=== PATIENT | female | born 1955 | race African-American/Black ===

== ENCOUNTER 2024-04-23 01:25 | Inpatient (IN) | payer MEDICARE, MEDICAID ==
[~2024-04-23] VITALS: Ht 180.3 cm; Wt 56.4 kg
[2024-04-23] MEDS: METHYLPREDNISOLONE SOD SUCC 125MG/2ML (ACT-O-VIAL) IV STA (02:00)
[2024-04-23] MEDS: IPRATROPIUM BROMIDE (0.02%) 0.5MG/2.5ML NEB ONE (03:35)
[2024-04-23] MEDS: ALBUTEROL (0.083%) 2.5MG/3ML NEB ONE (03:35)
[2024-04-23] MEDS: ALBUTEROL (0.083%) 2.5MG/3ML NEB HHN STA (03:44)
[2024-04-23] MEDS: IPRATROPIUM BROMIDE (0.02%) 0.5MG/2.5ML NEB HHN STA (03:44)
[2024-04-23 03:49] VITALS: PULSE 76; RESP 15; O2SAT 96
[2024-04-23 04:09] LABS: EOSINOPHILS % 4.7 % (0.0-5.0); HEMATOCRIT. 27.9 % (36.0-48.0); HEMOGLOBIN. 8.8 g/dL (12.0-16.0); LYMPHOCYTES % 15.3 % (20.0-50.0); MEAN CORPUSCULAR HEMOGLOBIN 25.8 pg (28.0-32.0); MEAN CORPUSCULAR HGB CONC 31.7 g/dL (31.0-37.0); MEAN CORPUSCULAR VOLUME 81.5 fL (81.0-99.0); MEAN PLATELET VOLUME 9.2 fl (7.4-10.4); MONOCYTES % 5.3 % (2.0-8.0); NEUTROPHILS % 73.7 % (40.0-76.0); PLATELET 434 x1000/uL (130-400); RED BLOOD CELL COUNT 3.42 mill/uL (4.2-5.4); RED CELL DISTRIBUTION WIDTH 15.5 % (11.6-14.6); WHITE BLOOD COUNT 10.9 x1000/uL (4.5-11.0)
[2024-04-23 04:15] LABS: CHLORIDE 112 mEq/L (98-107); POTASSIUM 4.4 mEq/L (3.5-5.1); SODIUM 138 mEq/L (136-145)
[2024-04-23 04:16] LABS: CALCIUM 12.6 mg/dL (8.7-10.4); CARBON DIOXIDE 19 mEq/L (21-32)
[2024-04-23 04:21] LABS: CREATININE 0.9 mg/dL (0.6-1.0); GLUCOSE 107 mg/dL (70-105); UREA NITROGEN BLOOD 24 mg/dL (9-23)
[2024-04-23 04:24] LABS: TROPONIN I HIGH SENSITIVITY < 4 ng/L (3.0-34)
[2024-04-23 04:30] LABS: BG BASE EXCESS -6.5 mmol/L (-2.0-3.0); BG CARBOXYHEMOGLOBIN 0.3 % (0.5-1.5); BG DEOXYHEMOGLOBIN 2.5 % (0.0-5.0); BG HCO3 ACT 17.6 mmol/L (21.0-28.0); BG METHEMOGLOBIN 0.3 % (0.5-1.5); BG OXYGEN SATURATION 97.5 % (94.0-98.0); BG OXYHEMOGLOBIN 96.9 % (94.0-98.0); BG PCO2 30.3 mmHg (32.0-45.0); BG PH 7.382 (7.350-7.450); BG PO2 97.4 mmHg (83.0-108.0); BG TOTAL HEMOGLOBIN 10.3 g/dL (12.0-16.0); BG VENT MODE ROOM AIR
[2024-04-23] MEDS ORDERED: MAGNESIUM/ALUMINUM HYDROXIDE/SIMETHICONE 30ML UDC PO PRN (05:15)
[2024-04-23] MEDS ORDERED: ONDANSETRON HCL 4MG/2ML INJ IV PRN (05:15)
[2024-04-23] MEDS ORDERED: HYDRALAZINE 20MG/ML VIAL IV PRN (05:15)
[2024-04-23] MEDS ORDERED: IPRATROPIUM/ALBUTEROL 0.5-3(2.5)MG/3ML NEB HHN PRN (05:15)
[2024-04-23] MEDS ORDERED: ACETAMINOPHEN 325MG TABLET PO PRN (05:15)
[2024-04-23] MEDS: SODIUM CHLORIDE 0.9% 1,000 ML IV SCH (05:29)
[2024-04-23] MEDS: PANTOPRAZOLE SODIUM 40 MG/VIAL IV SCH (08:13)
[2024-04-23] MEDS: ENOXAPARIN 40MG/0.4ML SYR SUBCUT SCH (08:14)
[2024-04-23 08:51] LABS: INR 1.1; PARTIAL THROMBOPLASTIN TIME 22.3 sec (23.4-31.0); PROTHROMBIN TIME 12.4 sec (9.6-11.0)
[2024-04-23 08:52] LABS: IRON 24 ug/dL (50-170)
[2024-04-23 08:53] LABS: PHOSPHORUS 2.5 mg/dL (2.5-4.9)
[2024-04-23 08:54] LABS: CREATINE KINASE MB FRACTION < 0.5 ng/mL (0.5-3.6)
[2024-04-23 08:55] LABS: FERRITIN 141 ng/mL (10-291); LACTATE DEHYDROGENASE 113 IU/L (120-246)
[2024-04-23 08:56] LABS: TOTAL IRON BINDING CAPACITY 205 ug/dl (250-425); VITAMIN B12 SERUM 966 pg/mL (211-911)
[2024-04-23 09:39] LABS: TROPONIN I HIGH SENSITIVITY < 4 ng/L (3.0-34)
[2024-04-23 09:40] LABS: CREATINE KINASE < 15 IU/L (34-145)
[2024-04-23] MEDS: GUAIFENESIN/DM 600MG/30MG ER TAB 12HR PO SCH (13:51)
[2024-04-23] MEDS: IOHEXOL-350 100 ML BOTTLE ONE (14:41)
[2024-04-23 21:09] LABS: CREATINE KINASE MB FRACTION < 0.5 ng/mL (0.5-3.6)
[2024-04-23 21:11] LABS: CREATINE KINASE < 15 IU/L (34-145)
[2024-04-24] VITALS (7 sets, daily range): BP systolic 107–153; BP diastolic 56–86; PULSE 63–98; RESP 18–19; TEMP 36.4–38; O2SAT 96–100
[2024-04-24] MEDS: ENOXAPARIN 30MG/0.3ML SYR SUBCUT SCH (09:03)
[2024-04-24] MEDS: ACETAMINOPHEN 325MG TABLET PO PRN (09:10)
[2024-04-24 10:46] LABS: EOSINOPHILS % 2.1 % (0.0-5.0); HEMATOCRIT. 30.4 % (36.0-48.0); HEMOGLOBIN. 9.6 g/dL (12.0-16.0); MEAN CORPUSCULAR HEMOGLOBIN 25.7 pg (28.0-32.0); MEAN CORPUSCULAR HGB CONC 31.7 g/dL (31.0-37.0); MEAN CORPUSCULAR VOLUME 81.2 fL (81.0-99.0); MEAN PLATELET VOLUME 10.1 fl (7.4-10.4); MONOCYTES % 3.6 % (2.0-8.0); NEUTROPHILS % 73.3 % (40.0-76.0); PLATELET 459 x1000/uL (130-400); RED BLOOD CELL COUNT 3.74 mill/uL (4.2-5.4); WHITE BLOOD COUNT 10.3 x1000/uL (4.5-11.0)
[2024-04-24 11:44] LABS: CALCIUM 12.8 mg/dL (8.7-10.4); CARBON DIOXIDE 17 mEq/L (21-32); CHLORIDE 112 mEq/L (98-107); POTASSIUM 4.5 mEq/L (3.5-5.1); SODIUM 139 mEq/L (136-145)
[2024-04-24 11:46] LABS: THYROID STIMULATING HORMONE 1.18 uIU/mL (0.55-4.78)
[2024-04-24 11:47] LABS: ALBUMIN 3.4 g/dL (3.2-4.8)
[2024-04-24 11:50] LABS: CREATININE 0.9 mg/dL (0.6-1.0); GLUCOSE 88 mg/dL (70-105); UREA NITROGEN BLOOD 29 mg/dL (9-23)
[2024-04-25] VITALS: BP 118/70; PULSE 77; RESP 18; TEMP 36.7; O2SAT 97
[2024-04-25 04:00] VITALS: BP 109/68; PULSE 83; RESP 18; TEMP 36.6; O2SAT 96
[2024-04-25 06:30] LABS: BASOPHILS % 0.7 % (0.0-2.0); DIFFERENTIAL COMMENT 0; EOSINOPHILS % 2.4 % (0.0-5.0); HEMATOCRIT. 32.8 % (36.0-48.0); HEMOGLOBIN. 10.2 g/dL (12.0-16.0); LYMPHOCYTES % 17.6 % (20.0-50.0); MEAN CORPUSCULAR HEMOGLOBIN 24.7 pg (28.0-32.0); MEAN CORPUSCULAR HGB CONC 31.1 g/dL (31.0-37.0); MEAN CORPUSCULAR VOLUME 79.5 fL (81.0-99.0); MEAN PLATELET VOLUME 9.6 fl (7.4-10.4); MONOCYTES % 3.8 % (2.0-8.0); NEUTROPHILS % 75.5 % (40.0-76.0); PLATELET 490 x1000/uL (130-400); RED BLOOD CELL COUNT 4.12 mill/uL (4.2-5.4); RED CELL DISTRIBUTION WIDTH 16.1 % (11.6-14.6); WHITE BLOOD COUNT 9.1 x1000/uL (4.5-11.0)
[2024-04-25 07:02] LABS: CHLORIDE 113 mEq/L (98-107); POTASSIUM 4.2 mEq/L (3.5-5.1); SODIUM 139 mEq/L (136-145)
[2024-04-25 07:03] LABS: CARBON DIOXIDE 17 mEq/L (21-32)
[2024-04-25 07:04] LABS: CALCIUM 12.8 mg/dL (8.7-10.4)
[2024-04-25 07:08] LABS: CREATININE 0.9 mg/dL (0.6-1.0); GLUCOSE 81 mg/dL (70-105); UREA NITROGEN BLOOD 24 mg/dL (9-23)
[2024-04-25 08:00] VITALS: BP 117/60; PULSE 84; RESP 18; TEMP 36.4; O2SAT 100
[2024-04-25] MEDS ORDERED: BENZONATATE 100MG CAPSULE PO PRN (08:15)
[2024-04-25] MEDS: FERROUS SULFATE 325MG TABLET PO SCH (08:40)
[2024-04-25 12:00] VITALS: BP 127/17; PULSE 83; RESP 18; TEMP 36.5; O2SAT 100
[2024-04-25 16:00] VITALS: BP 131/67; PULSE 85; RESP 20; TEMP 37.4; O2SAT 100
[2024-04-25 20:00] VITALS: BP 148/72; PULSE 87; RESP 20; TEMP 36.9; O2SAT 98
[2024-04-26] VITALS: BP 138/77; PULSE 80; RESP 18; TEMP 36.7; O2SAT 97
[2024-04-26 04:00] VITALS: BP 122/67; PULSE 78; RESP 20; TEMP 36.7; O2SAT 98
[2024-04-26 08:00] VITALS: BP 118/67; PULSE 78; RESP 18; TEMP 36.7; O2SAT 99
[2024-04-26] MEDS: DOCUSATE SODIUM 100MG CAPSULE PO PRN (10:40)
[2024-04-26 12:00] VITALS: BP 129/71; PULSE 82; RESP 18; TEMP 37; O2SAT 98
[2024-04-26 16:00] VITALS: BP 124/66; PULSE 78; RESP 18; TEMP 37.5; O2SAT 100
[2024-04-26] MEDS: ALENDRONATE SODIUM 35MG TABLET PO SCH (17:37)
[2024-04-26 20:00] VITALS: BP 134/65; PULSE 75; RESP 19; TEMP 36.6; O2SAT 96
[2024-04-27] VITALS (7 sets, daily range): BP systolic 124–136; BP diastolic 64–78; PULSE 70–84; RESP 17–20; TEMP 35.9–36.9; O2SAT 96–100
[2024-04-27] MEDS: GUAIFENESIN-DM 200MG-20MG/10ML UDC NG SCH (11:43)
[2024-04-27] MEDS ORDERED: BENZ100C86 PO (12:28)
[2024-04-27] MEDS ORDERED: FERR-63 PO (12:28)
[2024-04-27] MEDS: GUAIFENESIN 200MG/10ML SUGAR FREE UDC PO PRN (15:49)
[2024-04-27 18:49] LABS: CHLORIDE 113 mEq/L (98-107); HEMATOCRIT 28.3 % (36.0-48.0); HEMOGLOBIN 8.9 g/dL (12.0-16.0); MEAN CORPUSCULAR HEMOGLOBIN 25.5 pg (28.0-32.0); MEAN CORPUSCULAR HGB CONC 31.4 g/dL (31.0-37.0); MEAN CORPUSCULAR VOLUME 81.3 fL (81.0-99.0); PLATELET 350 x1000/uL (130-400); POTASSIUM 4.2 mEq/L (3.5-5.1); RED BLOOD CELL COUNT 3.48 mill/uL (4.2-5.4); RED CELL DISTRIBUTION WIDTH 15.6 % (11.6-14.6); SODIUM 136 mEq/L (136-145); WHITE BLOOD COUNT 10.8 x1000/uL (4.5-11.0)
[2024-04-27 18:50] LABS: CALCIUM 11.1 mg/dL (8.7-10.4); CARBON DIOXIDE 17 mEq/L (21-32)
[2024-04-27 18:55] LABS: CREATININE 0.6 mg/dL (0.6-1.0); GLUCOSE 96 mg/dL (70-105); UREA NITROGEN BLOOD 13 mg/dL (9-23)
[2024-04-28] VITALS: BP 138/69; PULSE 70; RESP 18; TEMP 36.6; O2SAT 99
[2024-04-28 04:00] VITALS: BP 123/65; PULSE 73; RESP 17; RESP 18; TEMP 36.4; O2SAT 99
[2024-04-28 08:00] VITALS: BP 134/68; PULSE 71; RESP 18; TEMP 36.5; O2SAT 100
[2024-04-28] MEDS ORDERED: FAMOTIDINE 20MG/2ML VIAL IV SCH (09:00)
== END 2024-04-28 12:20 | disposition home health service (06) | DRG 180 ==
LOC: ER 01:25 → 8WST 03:46 → EDBEDREQ 05:13
PROVIDERS: ADMIT Hospitalist; ATTEND Hospitalist
DX: C34.90 Malignant neoplasm of unspecified part of unspecified bronchus or lung (principal); J18.9 Pneumonia, unspecified organism; J96.01 Acute respiratory failure with hypoxia; L89.154 Pressure ulcer of sacral region, stage 4; L89.214 Pressure ulcer of right hip, stage 4; E46 Unspecified protein-calorie malnutrition; J44.0 Chronic obstructive pulmonary disease with (acute) lower respiratory infection; R64 Cachexia; J47.0 Bronchiectasis with acute lower respiratory infection; E87.20 Acidosis, unspecified; Z68.1 Body mass index [BMI] 19.9 or less, adult; B19.20 Unspecified viral hepatitis C without hepatic coma; D64.9 Anemia, unspecified; D75.839 Thrombocytosis, unspecified; I10 Essential (primary) hypertension; E83.52 Hypercalcemia; F17.200 Nicotine dependence, unspecified, uncomplicated; Z85.05 Personal history of malignant neoplasm of liver; Z87.01 Personal history of pneumonia (recurrent); Z79.899 Other long term (current) drug therapy
CPT/HCPCS: 36415; 36600; 71045; 71275; 80048; 82040; 82105; 82330; 82375; 82378; 82550; 82553; 82607; 82728; 82805; 83540; 83550; 83605; 83615; 83735; 83880; 83970; 84100; 84145; 84443; 84484; 85025; 85027; 85379; 87070; 87077; 87116; 87186; 92610; 93005; 94640; 97161; 97165; 99285; A4606; A6261; J1650; J2470; J2919; J7030; Q9967